=== PATIENT | male | born 1965 | race Two or more races ===

== ENCOUNTER 2020-10-17 11:36 | Outpatient (CLI) | payer OTHER | END 2020-10-17 11:50 | disposition home or self-care (01) | LOC: SONOGRAMA 11:36 | PROVIDERS: ATTEND Pathology Anatomic Pathology & Clinical Pathology | DX: E04.2 Nontoxic multinodular goiter (principal) ==

== ENCOUNTER 2024-01-21 08:09 | Outpatient (CLI) | payer OTHER | END 2024-01-21 08:18 | disposition home or self-care (01) | LOC: RX STUDY 08:09 | DX: R13.13 Dysphagia, pharyngeal phase (principal) ==